=== PATIENT | female | born 1980 | race Caucasian/White ===

== ENCOUNTER 2024-09-17 17:58 | Emergency (ER) | payer OTHER, SELFPAY ==
[2024-09-17 17:59] VITALS: BP 138/76; PULSE 64; RESP 16; TEMP 36.6; O2SAT 100; BMI 28.5
--- NOTE | 2024-09-17 18:18 | EX.ED.DYSGE1 ---
HPI History of Present Illness Chief Complaint: Allergic Reaction Informant: patient and spouse/S.O. Narrative Narrative: 44-year-old female presenting to the emergency room with reaction to bug bite. Patient states that she was stung by an unknown insect on her forehead and her right wrist. She states that she has had good localized reactions in the past that been treated with steroids and Benadryl. She did not have any Benadryl with her so she took a Zyrtec. She notes facial swelling that has spread down to her nose. She denies any changes to her voice or difficulty breathing. No diffuse hives. [facility] Medical History Hypothyroid Allergy/AdvReac Type Severity Reaction Status Date / Time No Known Allergies Allergy Verified 09/17/24 18:00 Social History Smoking Status: Never smoker ROS ROS ED Constitutional Constitutional ED: Denies chills, fever(s) or weight loss Eyes Eyes: Denies change in vision or diplopia ENT ENT ED: Denies ear pain, rhinorrhea or sore throat Cardiovascular Cardiovascular: Denies chest pain, orthopnea, palpitations or racing heartbeat Respiratory/Chest Respiratory/Chest: Denies cough, dyspnea or orthopnea Gastrointestinal Gastrointestinal: Denies abdominal pain, diarrhea, nausea or vomiting Genitourinary Genitourinary ED: Denies dysuria, hematuria or urinary frequency Musculoskeletal Musculoskeletal: Denies arthralgias or myalgias Integumentary Reports other Details: Right wrist facial swelling ; Denies abscess or rash Neurologic Neurologic: Denies headache(s) or weakness Psychiatric Psychiatric: Denies anxiety, depression, suicidal ideation or suicidal thoughts Endocrine Endocrinology: Denies polydipsia, polyphagia or polyuria Allergic/Immunologic Allergic/Immunologic ED: Denies mouth swelling, tongue swelling or urticaria EXAM Physical Exam Const Vital Signs: 09/17/24 17:59 Temperature 97.8 F Temperature Source Oral Pulse Rate 64 Respiratory Rate 16 Blood Pressure 138/76 H Blood Pressure Mean 96 Pulse Ox 100 Oxygen Delivery Method Room Air Positive well nourished and well developed General Appearance ED: well developed HEENT Reports normocephalic and moist mucous membranes HEENT Narrative: Patient with mild swelling of the forehead extending down onto the medial right aspect of the nose. There is no stridor no tongue or lip swelling. Uvula appears normal. Eyes PERRL and EOMs intact bilaterally Neck no lymphadenopathy, supple and no JVD Resp normal respiratory effort and clear to auscultation bilaterally Cardio regular rate, regular rhythm and no murmurs GI normal to inspection, nondistended, normoactive bowel sounds and non-tender Palpation: soft Back/Spine no CVA tenderness and normal ROM Extremity Extremity Narrative: Mild swelling to the dorsum of the right wrist. General Extremety ED: Negative for edema General Extremity: Negative for edema Neuro oriented x3 and CN's II-XII intact bilaterally Sensorium / Orientation: alert Motor Exam: strength 5/5 throughout Psych mental status grossly normal Mood & Affect: Negative for depressed or tearful Skin no rashes or lesions noted and no wounds MDM MDM MDM Narrative Medical decision making narrative: Differential diagnosis includes anaphylaxis local reaction to insect sting cellulitis angioedema respiratory distress Patient be given a dose of Kenalog as she has done well with this in the past. Also give her a dose of Benadryl and Pepcid here. Home treatment discussed with patient notes understanding. Would recommend follow-up as needed return if worsening or concerns History & Record Review Discussion w/independent historian: Patient and Significant other Discharge Plan Triage Chief Complaint: Allergic Reaction ED Provider: Blake Basilio/Rx/DC Orders Print Language: Danish
[2024-09-17] MEDS: Famotidine 20 MG Tablet PO (18:25)
[2024-09-17] MEDS: Triamcinolone Acetonide 40 MG/ML Vial 80 MG IM (18:25)
[2024-09-17] MEDS: DiphenhydrAMINE 25 MG Capsule PO (18:25)
--- OUTSIDE RECORDS SUMMARY | 2024-09-17 18:32 | XMS RPT_ITS | CCD ---
Author Organization [facility] Care Team Providers Care Director Electronics Name Role Phone Dejah Marquez Primary Care Provider [phone] Georgina Wiggins Primary Care Provider Allergies Allergy Classification Reported Allergen(s) Allergy Type Date of Onset Reaction(s) Facility Adrenergic Agonists (4 sources) EPINEPHrine Drug Allergy 05-04-2018 [facility] (3 sources) EPINEPHrine Drug Allergy 05-04-2018 [facility] (7 sources) Bee Sting Allergy to substance 05-04-2018 [facility] Medications Completed/Discontinued Medications Medication Drug Class(es) Dates Sig (Normalized) Sig (Original) copper 313 mg drug implant (6 sources) Copper-containing Intrauterine Device copper (PARAGARD) 380 square mm intrauterine device 1 Intra Uterine Device by INTRAUTERINE route. 0 Active Comment on above: 1 Intra Uterine Shikha ce by INTRAUTERINE route. levonorgestrel 0.166139 mg/hr intrauterine system (2 sources) Progestin, Progestin-containi ng Intrauterine Device End: 08-07-2020 levonorgestrel (MIRENA) 20 mcg/24 hr (5 years) IUD 1 Each by INTRAUTERINE route one time only. 0 08/07/2020 Discontinued Comment on above: 1 Each by INTRAUTERI NE route one time only. levothyroxine sodium 0.075 mg oral tablet (11 sources) l-Thyroxine Start: 04-22-2021 levothyroxine (SYNTHROID) 75 mcg tablet Indications: Hypothyroidism, unspecified type take 2 tablets by mouth EVERY WEDNESDAY AND TAKE 1 TABLET BY MOUTH WEDNESDAY THROUGH WEDNESDAY 34 tablet 2 04/22/2021 Active Start: 08-21-2020 End: 04-22-2021 levothyroxine (SYNTHROID) 75 mcg tablet Indications: Hypothyroidism, unspecified type Take 2 tabs every Wednesday and 1 tab Wednesday thrwednesday 34 tablet 5 10/23/2020 04/22/2021 Discontinued Start: 06-13-2019 End: 08-20-2020 take 1 tablet by mouth once daily levothyroxine (SYNTHROID) 75 mcg tablet Indications: Hypothyroidism, unspecified type take 1 tablet by mouth once daily 30 tablet 0 06/21/2020 08/20/2020 Discontinued Comment on above: take 1 tablet by jovany th once daily Take 1 tablet by jovany th once daily. Take 2 tabs every and 1 tab Wednesday thrwednesday take 2 tablets by mo uth EVERY WEDNESDAY AND TAKE 1 TABLET BY MOUTH WEDNESDAY THROUGH WEDNESDAY MULTIVITAMIN ORAL (7 sources) MULTIVITAMIN ORA L Take by mouth once daily. 0 Active Comment on above: Take by mouth once d aily. predniSONE 20 mg oral tablet (2 sources) Start: 07-07-2019 End: 08-07-2020 predniSONE (DELTASONE) 20 mg tablet Indications: Contact dermatitis due to poison kat Take 3 tabs (60mg) daily x 7 days for first week. Week two take 2 tabs (40mg) daily x 7 days, Week three take one tab daily for 7 days 42 tablet 0 07/07/2019 08/07/2020 Discontinued Comment on above: Take 3 tabs (60mg) d aily x 7 days for first week. Week two take 2 tabs (40mg) daily x 7 days, Week three take one tab daily for 7 days Problems Problem Classification Problem Date Documented Da te Episodic/Chronic Other nervous system disorders (1 source) Paresthesia of hand ; Translations: [Anesthesia of skin] Episodic Other screening for suspected conditions (not mental disorders or infectious disease) (1 source) Patient encounter status; Translations: [Encounter for screening for other suspected endocrine disorder] Episodic Thyroid disorders (12 sources) Hypothyroidism; Translations: [Hypothyroidism, unspecified] 05-04-2018 Chronic Viral infection (1 source) Viral wart on finger; Translations: [Viral wart, unspecified] Episodic Results Test Name Value Interpretation Reference Range Facil ity CNPNon 08-14-2021 CNPManan Telephone ([facility]) ANGIE GARCIA ([id number]) 1980 F Date Time Provider Department 08/14/21 DEJAH MARQUEZ During your visit today, we recorded the following information about you: Jackie Rossi 08/14/2021 8:27 AM Signed Received medical record request from [facility]. Change of PCP Record faxed to above. Mgraening Allergies As of Date: 08/14/2021 Noted Allergy Reaction BEE STING 05/04/2018 7 - Swelling EPIPEN (EPINEPHRINE HCL) 05/04/2018 7 - Swelling Date Reviewed: 08/07/2020 Reviewed by: Dejah Marquez MD - Fully Assessed Reason for Visit: Release Of Medical Records [2017] Prescriptions as of 08/14/2021 - levothyroxine (SYNTHROID) 75 mcg tablet take 2 tablets by mouth EVERY WEDNESDAY AND TAKE 1 TABLET BY MOUTH WEDNESDAY THROUGH WEDNESDAY - copper (PARAGARD) 380 square mm intrauterine device 1 Intra Uterine Device by INTRAUTERINE route. - MULTIVITAMIN ORAL Take by mouth once daily. Problem List As Of Date 08/14/2021 Noted Resolved Urinary tract infection with hematuria [N39.0, *09/12/2016 05/04/2018 Dysuria [R30.0] 09/12/2016 05/04/2018 Hypothyroidism [E03.9] Encounter Status:Closed by JACKIE ROSSI on 08/14/21 [facility] OBSOLETEon 10-23-2020 OBSOLETE Refill ([facility]) ANGIE GARCIA ([id number]) 1980 F Date Time Provider Department 10/23/20 DEJAH MARQUEZ During your visit today, we recorded the following information about you: Marina Quick 10/23/2020 9:41 AM Signed Patient called office, requesting a refill on levothyroxine (SYNTHROID) 75 mcg tablet Thank you Marina Christensen LPN 10/23/2020 10:16 AM Signed Pharmacy faxed requesting the following refill Pending Prescriptions Disp Refills LEVOTHYROXINE 75 MCG TABLET 34 tablet 5 Sig: Take 2 tabs every Wednesday and 1 tab Wednesday thru Wednesday [place]: No Allergies: Bee Sting and Epipen [Epinephrine Hcl] (home) [phone] (cell) Last Visit date: 08/07/20 Future appointment: none The patients preferred pharmacy has been captured for this encounter? yes Request is for script(s) to be escript to pharmacy. OARRS Report for this patient was checked and validated:Not applicable Ysabel Christensen LPN Allergies As of Date: 10/23/2020 Noted Allergy Reaction BEE STING 05/04/2018 7 - Swelling EPIPEN (EPINEPHRINE HCL) 05/04/2018 7 - Swelling Date Reviewed: 08/07/2020 Reviewed by: Dejah Marquez MD - Fully Assessed Reason for Visit: Refill Request [94] Visit Diagnosis:Hypothyroi dism, unspecified type [E03.9] Order(s):levothyroxi ne (SYNTHROID) 75 mcg tabletTake 2 tabs every Wednesday and 1 tab Wednesday thru WednesdayDisp: 34 tabletRfl: 5 Prescriptions as of 10/23/2020 - levothyroxine (SYNTHROID) 75 mcg tablet Take 2 tabs every Wednesday and 1 tab Wednesday thru Wednesday - copper (PARAGARD) 380 square mm intrauterine device 1 Intra Uterine Device by INTRAUTERINE route. - MULTIVITAMIN ORAL Take by mouth once daily. Problem List As Of Date 10/23/2020 Noted Resolved Urinary tract infection with hematuria [N39.0, *09/12/2016 05/04/2018 Dysuria [R30.0] 09/12/2016 05/04/2018 Hypothyroidism [E03.9] Prescriptions ordered this encounter Disp Refills Start End LEVOTHYROXINE 75 MCG TABLET 34 t* 5 10/23/2020 Sig: Take 2 tabs every Wednesday and 1 tab Wednesday thru Wednesday Medications Discontinued During This Encounter Prescriptions - levothyroxine (SYNTHROID) 75 mcg tablet (Discontinued) Take 2 tabs every Wednesday and 1 tab Wednesday thru Wednesday Encounter Status:Closed by DEJAH MARQUEZ on 10/23/20 [facility] OBSOLETEon 08-27-2020 OBSOLETE Refill ([facility]) ANGIE GARCIA ([id number]) 1980 F Date Time Provider Department 08/27/20 DEJAH MARQUEZ [facility] During your visit today, we recorded the following information about you: Allergies As of Date: 08/27/2020 Noted Allergy Reaction BEE STING 05/04/2018 7 - Swelling EPIPEN (EPINEPHRINE HCL) 05/04/2018 7 - Swelling Date Reviewed: 08/07/2020 Reviewed by: Dejah Marquez MD - Fully Assessed Reason for Visit: Refill Request [94] Visit Diagnosis:Hypothyroi dism, unspecified type [E03.9] Prescriptions as of 08/27/2020 Sig: LEVOTHYROXINE 75 MCG TABLET Take 2 tabs every Wednesday and * COPPER 380 SQUARE MM INTRAUTE* 1 Intra Uterine Device by INT* MULTIVITAMIN ORAL Take by mouth once daily. Problem List As Of Date 08/27/2020 Noted Resolved Urinary tract infection with hematuria [N39.0, *09/12/2016 05/04/2018 Dysuria [R30.0] 09/12/2016 05/04/2018 Hypothyroidism [E03.9] Encounter Status:Closed by SHERRY WOODRUFF MA on 08/27/20 [facility] TSH, 3rd generationon 2018 TSH, 3rd generation 5.490 uIU/mL High 0.358-3.740 [facility] Comment on above: Performed By: #### T SH3 #### [facility] [address] [place], [place] [address] Vital Signs Date Time Vital Sign Value Performing Clinician Arnold watts 08-07-2020 08:30-0400 Body height 165.1 cm Dejah Marquez MD Work Phone: [facility] 08-07-2020 08:30-0400 Body weight 71.22 kg Dejah Marquez MD Work Phone: [facility] 08-07-2020 08:30-0400 Diastolic blood pressure 68 mm[Hg] Dejah Marquez MD Work Phone: [facility] 08-07-2020 08:30-0400 Heart rate 81 /min Dejah Marquez MD Work Phone: [facility] 08-07-2020 08:30-0400 SaO2% (BldA) [Mass fraction] 99 % Dejah Marquez MD Work Phone: [facility] 08-07-2020 08:30-0400 Systolic blood pressure 100 mm[Hg] Dejah Marquez MD Work Phone: [facility] Encounters Encounter Date Encounter Type Care Provider Facility Start: 08-14-2021 Telephone encounter Dejah perrin MD Work Phone: [facility] Comment on above: Release Of Medical R ecords Start: 04-22-2021 Refill Dejah Marquez MD Work Phone: [facility] Comment on above: Refill Request Start: 10-23-2020 End: 10-23-2020 Refill Dejah Marquez MD Work Phone: [facility] Comment on above: Refill Request Start: 08-27-2020 End: 08-27-2020 Refill Dejah Marquez MD Work Phone: [facility] Comment on above: Refill Request Start: 08-16-2020 End: 08-16-2020 Telephone encounter Dejah Marquez MD Work Phone: [facility] Comment on above: Results Start: 08-07-2020 End: 08-07-2020 Patient encounter procedure Dejah Marquez MD Work Phone: [facility] Comment on above: Annual physical exam (Primary Dx); Routine lab draw; Screening for endocrine, nutritional, metabolic and immunity disorder; Numbness and tingling in both hands; Viral wart on finger Start: 08-07-2020 End: 08-07-2020 Patient encounter status Dejah Marquez MD Work Phone: [facility] Start: 06-20-2020 End: 06-20-2020 Refill Inocencio ([employer] Ramses Work Phone: [facility] Comment on above: Refill Request (levo throxine) Procedures Date Procedure Procedure Detail Performing Clinician Start: 08-07-2020 Adult depression screening assessment Dejah Marquez MD Work Phone: Start: 06-13-2019 Adult depression screening assessment Inocencio Ramses Plan of Treatment Date Care Activity Detail Author Start: 09-14-2028 Urine microalbumin profile DTA P,TDAP,TD (3 - Td or Tdap) [facility] Start: 05-16-2023 Urine microalbumin profile DTAP,TDAP ,TD (2 - Td) [facility] Start: 12-04-2021 Influenza vaccination INFLUENZA (Sea son Ended) [facility] Start: 08-07-2021 Adult depression scr eening assessment DEPRESSION SCREENING [facility] Start: 08-07-2021 ANNUAL PCP TEAM PRIMER BOXER MATEO DISEASE VISIT ANNUAL PCP TEAM CHRONIC DISEASE VISIT [facility] Start: 05-25-2021 COVID-19 VACCINE (3 - Booster for Moderna series) COVID-19 VACCINE (3 - Booster for Moderna series) [facility] Start: 12-04-2020 Influenza vaccination [facility] Start: 08-07-2020 End: 08-07-2021 CBC W Auto Differential panel - Blood CBC + DIFF Lab Routine Routine lab draw Expected: 08/07/2020, Expires: 08/07/2021 [facility] Comment on above: Expected: 08/07/2020 , Expires: 08/07/2021 Start: 08-07-2020 End: 08-07-2021 Comprehensive metabolic 2000 panel - Serum or Plasma COMP METABOLIC PANEL Lab Routine Routine lab draw Expected: 08/07/2020, Expires: 08/07/2021 [facility] Comment on above: Expected: 08/07/2020 , Expires: 08/07/2021 Start: 08-07-2020 End: 08-07-2021 LIPID PANEL BASIC LIPID PANEL BASIC Lab Routine Screening for endocrine, nutritional, metabolic and immunity disorder Expected: 08/07/2020, Expires: 08/07/2021 [facility] Comment on above: Expected: 08/07/2020 , Expires: 08/07/2021 Start: 08-07-2020 End: 08-07-2021 Thyrotropin [Units/volume] in Serum or Plasma TSH BLD Lab Routine Screening for endocrine, nutritional, metabolic and immunity disorder Expected: 08/07/2020, Expires: 08/07/2021 [facility] Comment on above: Expected: 08/07/2020 , Expires: 08/07/2021 Start: 07-06-2020 ANNUAL PCP TEAM PRIMER BOXER MATEO DISEASE VISIT ANNUAL PCP TEAM CHRONIC DISEASE VISIT [facility] Start: 06-12-2020 Adult depression scr [facility] assessment DEPRESSION SCREENING [facility] Start: 03-11-2020 HPV TESTING HPV TESTING [facility] Start: 03-11-2020 PAP TESTING PAP TESTING [facility] Start: 12-05-2019 Influenza vaccination INFLUENZA (#1) [facility] Start: 2000 HEPATITIS C SCREENING HEPATITIS C [facility] Start: 2000 HIV SCREENING HIV SCREENING [facility] Start: 1994 COVID-19 VACCINE (1) COVID-19 VACCIN E (1) [facility] End: 08-07-2021 EMG(NEURO/NI) EMG(NEURO/NI) EMG Routine Numbness and tingling in both hands 1 Occurrences starting 08/07/2020 until 08/07/2021 [facility] Comment on above: 1 Occurrences starti ng 08/07/2020 until 08/07/2021 End: 08-07-2021 T4 FREE/FREE THYROX T4 FREE/FREE THYROX Lab Routine Screening for endocrine, nutritional, metabolic and immunity disorder 1 Occurrences starting 08/07/2020 until 08/07/2021 [facility] Comment on above: 1 Occurrences starti ng 08/07/2020 until 08/07/2021 Immunizations Immunization Date Immunization Notes Care Provider Yaw amin 12-23-2020 COVID-19 vaccine, fu ll dose (MODERNA) Dejah Marquez MD Work Phone: [facility] 11-25-2020 COVID-19 vaccine, fu ll dose (MODERNA) Dejah Marquez MD Work Phone: [facility] 09-14-2018 tetanus toxoid, redu jose g diphtheria toxoid, and acellular pertussis vaccine, adsorbed Dejah Marquez MD Work Phone: [facility] Social History Date Type Detail Facility Start: 09-12-2016 End: 06-13-2019 Tobacco smoking status NHIS Never smoker [facility] Start: 09-12-2016 End: 06-13-2019 Tobacco use and exposure Never used [facility] Start: 06-13-2019 End: 08-07-2020 Alcohol intake Current drinker of alcohol (finding) [facility] Start: 09-12-2016 Alcohol Comment occasionally [facility] Start: 1980 Sex Assigned At Not on file [facility] Exposure to SARS-CoV -2 (event) Not sure [facility] Clinical Notes 09-12-2016 to 08-14-2021 Telephone Encounter - Jackie Rossi - 08/14/2021 8:26 AM EDTTelephone Encounter - Ysabel Christensen LPN - 04/22/2021 9:30 AM ESTTelephone Encounter - Ysabel Christensen LPN - 10/23/2020 10:15 AM EDT Note Date & Type Note Facility 08-14-2021 Miscellaneous Notes Received medical record request from [facility]. Change of PCP Record faxed to above. Luke documented in this encounter [facility] 04-22-2021 Miscellaneous Notes Pharmacy faxed requesting the following refill Pending Prescriptions Disp Refills LEVOTHYROXINE 75 MCG TABLET 34 tablet 2 Sig: take 2 tablets by mouth EVERY WEDNESDAY AND TAKE 1 TABLET BY MOUTH WEDNESDAY THROUGH WEDNESDAY [place]: No Allergies: Bee Sting and Epipen [Epinephrine Hcl] (home) [phone] (cell) Last Visit date: 06/13/2019 Future appointment: 08/07/20 The patients preferred pharmacy has been captured for this encounter? yes Request is for script(s) to be escript to pharmacy. OARRS Report for this patient was checked and validated:Not applicable Ysabel Christensen LPN documented in this encounter [facility] 10-23-2020 Miscellaneous Notes Pharmacy faxed requesting the following refill Pending Prescriptions Disp Refills LEVOTHYROXINE 75 MCG TABLET 34 tablet 5 Sig: Take 2 tabs every Wednesday and 1 tab Wednesday thru Wednesday [place]: No Allergies: Bee Sting and Epipen [Epinephrine Hcl] (home) [phone] (cell) Last Visit date: 08/07/20 Future appointment: none The patients preferred pharmacy has been captured for this encounter? yes Request is for script(s) to be escript to pharmacy. OARRS Report for this patient was checked and validated:Not applicable Ysabel Christensen LPN Patient called office, requesting a refill on levothyroxine (SYNTHROID) 75 mcg tablet Thank you Marina Quick documented in this encounter [facility] 08-26-2020 Miscellaneous Notes Pt informed of the message below. Understanding voiced; she states she called this morning and they said they didn't have anything for her but she called it by the wrong name. She's going to call them again and double check and if they still don't have it she will let us know. Rhonda Jim CMA Patient called office, left message, stating per her pharmacy they have never received her new Rx for her Synthroid. Please advise Thank you Marina Quick Noted. RX pended for review. Thanks! Rhonda Jim CMA Patient notified, voiced understanding. Patient will need new rx sent over with new instructions. Berta Morocho Called pt; no answer, left VM to return our call. Rhonda Jim CMA All the blood work looks okay, except Thyroid- start taking 2 tab of the levothyroxine on sundays and 1 tab daily for the rest of the week. documented in this encounter [facility] 08-07-2020 Instructions Dejah Marquez MD - 08/07/2020 9:08 AM EDT Fasting blood work and nerve conduction study- see orders. documented in this encounter [facility] 08-07-2020 History of Presen t illness Narrative Subjective Angie Worthy is a 40 year old female who presents for a Physical. States her arm and legs fall asleep a lot lately. The history is provided by the patient. She also has tingling and numbness in the hands. Hypothyroidism- last TSH in 2019 Review of Systems Constitutional: Negative for fever, malaise/fatigue and weight loss. HENT: Negative for hearing loss and tinnitus. Eyes: Negative for blurred vision and double vision. Respiratory: Negative for cough and shortness of breath. Cardiovascular: Negative for chest pain and palpitations. Gastrointestinal: Negative for abdominal pain, constipation, diarrhea, nausea and vomiting. Genitourinary: Negative for dysuria, frequency, hematuria and urgency. Musculoskeletal: Negative for falls and myalgias. Neurological: Positive for tingling. Negative for dizziness, sensory change and weakness. Endo/Heme/Allergies: Negative for polydipsia. Psychiatric/Behavioral: Negative for depression. The patient is not nervous/anxious. PAST MEDICAL HISTORY Diagnosis Date Hypothyroidism PAST SURGICAL HISTORY Procedure Laterality Date PAST SURGICAL HISTORY OF 2012 section FAMILY HISTORY Problem Relation Age of Onset Heart disease Maternal Grandmother Hypertension Maternal Grandmother Heart disease Maternal Grandfather Hypertension Maternal Grandfather Social History Tobacco Use Smoking status: Never Smoker Smokeless tobacco: Never Used Vaping Use Vaping Use: Never used Substance Use Topics Alcohol use: Yes Comment: occasionally Drug use: No Current Meds copper (PARAGARD) 380 square mm intrauterine device 1 Intra Uterine Device by INTRAUTERINE route. levothyroxine (SYNTHROID) 75 mcg tablet take 1 tablet by mouth once daily MULTIVITAMIN ORAL Take by mouth once daily. predniSONE (DELTASONE) 20 mg tablet Take 3 tabs (60mg) daily x 7 days for first week. Week two take 2 tabs (40mg) daily x 7 days, Week three take one tab daily for 7 days levonorgestrel (MIRENA) 20 mcg/24 hr (5 years) IUD 1 Each by INTRAUTERINE route one time only. Objective Ht 165.1 cm (5' 5) Wt 71.2 kg (157 lb) LMP 07/15/2020 BMI 26.13 kg/m Physical Exam Vitals and nursing note reviewed. Constitutional: Appearance: Normal appearance. HENT: Head: Normocephalic and atraumatic. Right Ear: Tympanic membrane, ear canal and external ear normal. There is no impacted cerumen. Left Ear: Tympanic membrane, ear canal and external ear normal. There is no impacted cerumen. Eyes: General: No scleral icterus. Right eye: No discharge. Left eye: No discharge. Extraocular Movements: Extraocular movements intact. Conjunctiva/sclera: Conjunctivae normal. Pupils: Pupils are equal, round, and reactive to light. Cardiovascular: Rate and Rhythm: Normal rate and regular rhythm. Heart sounds: Normal heart sounds. No friction rub. Pulmonary: Effort: Pulmonary effort is normal. No respiratory distress. Breath sounds: Normal breath sounds. No stridor. No wheezing or rhonchi. Abdominal: General: Abdomen is flat. Bowel sounds are normal. There is no distension. Palpations: Abdomen is soft. There is no mass. Tenderness: There is no abdominal tenderness. Hernia: No hernia is present. Musculoskeletal: General: Normal range of motion. Neurological: General: No focal deficit present. Mental Status: She is alert. Cranial Nerves: No cranial nerve deficit. Motor: No weakness. Psychiatric: Mood and Affect: Mood normal. ASSESSMENT/PLAN: 1. Annual physical exam - ICD9: V70.0, ICD10: Z00.00 (primary diagnosis) - Encouraged monthly Breast Self Exam - Recommended calcium intake with supplements or by diet (goal of 7943-1579 mg/day - Recommended regular aerobic exercise. - Check CBC with diff, CMP, TSH and fasting lipid panel 2. Routine lab draw - ICD9: V72.60, ICD10: Z01.89 - CBC + DIFF - COMP METABOLIC PANEL 3. Screening for endocrine, nutritional, metabolic and immunity disorder - ICD9: V77.99, ICD10: Z13.29, Z13.21, Z13.228, Z13.0 - TSH BLD - LIPID PANEL BASIC - T4 FREE/FREE THYROX 4. Numbness and tingling in both hands - ICD9: 782.0, ICD10: R20.0, R20.2 - EMG(NEURO/NI) 5. Viral wart on finger - ICD9: 078.10, ICD10: B07.9 Is using topical meds and following dermatology Dejah Marquez MD documented in this encounter [facility] 09-12-2016 History of Past i llness Narrative Problem Noted Date Resolved Date Urinary tract infection with hematuria 7 05/04/2018 Dysuria 09/12/2016 05/04/2018 documented as of this encounter (statuses as of 08/08/2020) [place] [id number] History of Past illness Narrative* Problem Noted Date Resolved Date Urinary tract infection with hematuria 7 05/04/2018 Dysuria 09/12/2016 05/04/2018 documented as of this encounter (statuses as of 08/26/2020) [facility] History of Past illness Narrative* Problem Noted Date Resolved Date Urinary tract infection with hematuria 7 05/04/2018 Dysuria 09/12/2016 05/04/2018 documented as of this encounter (statuses as of 08/27/2020) [facility] History of Past illness Narrative* Problem Noted Date Resolved Date Urinary tract infection with hematuria 7 05/04/2018 Dysuria 09/12/2016 05/04/2018 documented as of this encounter (statuses as of 10/23/2020) [facility] History of Past illness Narrative* Problem Noted Date Resolved Date Urinary tract infection with hematuria 7 05/04/2018 Dysuria 09/12/2016 05/04/2018 documented as of this encounter (statuses as of 04/22/2021) [facility] History of Past illness Narrative* Problem Noted Date Resolved Date Urinary tract infection with hematuria 7 05/04/2018 Dysuria 09/12/2016 05/04/2018 documented as of this encounter (statuses as of 08/14/2021) [facility] note* Diagnosis Annual physical exam- Primary Routine general medical examination at a health care facility Routine lab draw Laboratory examination ordered as part of a routine general medical examination Screening for endocrine, nutritional, metabolic and immunity disorder Screening for other and unspecified endocrine, nutritional, metabolic, and immunity disorders Numbness and tingling in both hands Viral wart on finger [facility] Diagnosis Hypothyroidism, unspecified type [facility] Diagnosis Hypothyroidism, unspecified type documented in this encounter [facility] Diagnosis Hypothyroidism, unspecified type documented in this encounter [facility] Outpatient Procedure (Routine) Status Reason Specialty Diagnoses / Procedures Referred By Contact Referred To Contact Pending Review Auto-Generated Referral [facility] Diagnoses Numbness and tingling in both hands Procedures EMG(NEURO/NI) MOTOR &/SENS 9-10 NRV CNDJ PRECONF ELTRODE LIMB Dejah Marquez MD [address] [facility] [address] [place] [address] Neurological [place] [address] [place] [address] [facility] Summary Purpose Family History No Family History Records FoundNo Family History Records Found Advance Directives No Advanced Directives Records FoundNo Advanced Directives Records Found History of Past Illness Problem Noted Date Resolved Date Urinary tract infection with hematuria 7 05/04/2018 Dysuria 09/12/2016 05/04/2018 Assessments Diagnosis Hypothyroidism, unspecified type Additional Source Comments INFORMATION SOURCE (unrecogn ized section and content) DATE CREATED AUTHOR 07/07/2019 [facility] DATE CREATED AUTHOR AUTHOR'S ORGANIZ ATION 08/15/2021 [facility] Source Comments (unrecognize d section and content) In the event this informatio n is protected by the Federal Confidentiality of Alcohol and Drug Abuse Patient Records regulations: The Federal rules restrict any use of the information to criminally investigate or prosecute any alcohol or drug abuse patient.[facility] Hospital[facility] the event this information is protected by the Federal Confidentiality of Alcohol and Drug Abuse Patient Records regulations: The Federal rules restrict any use of the information to criminally investigate or prosecute any alcohol or drug abuse patient.[facility] Hospital[facility] the event this information is protected by the Federal Confidentiality of Alcohol and Drug Abuse Patient Records regulations: The Federal rules restrict any use of the information to criminally investigate or prosecute any alcohol or drug abuse patient.[facility] Hospital[facility] the event this information is protected by the Federal Confidentiality of Alcohol and Drug Abuse Patient Records regulations: The Federal rules restrict any use of the information to criminally investigate or prosecute any alcohol or drug abuse patient.[facility] Hospital[facility] the event this information is protected by the Federal Confidentiality of Alcohol and Drug Abuse Patient Records regulations: The Federal rules restrict any use of the information to criminally investigate or prosecute any alcohol or drug abuse patient.[facility] Hospital[facility] the event this information is protected by the Federal Confidentiality of Alcohol and Drug Abuse Patient Records regulations: The Federal rules restrict any use of the information to criminally investigate or prosecute any alcohol or drug abuse patient.[facility] Hospital[facility] the event this information is protected by the Federal Confidentiality of Alcohol and Drug Abuse Patient Records regulations: The Federal rules restrict any use of the information to criminally investigate or prosecute any alcohol or drug abuse patient.[facility] Reason for Visit (unrecogniz ed section and content) Reason Comments Refill Request levothroxine Reason Comments Physical Status Reason Specialty Diagnoses / Procedures Referred By Contact Referred To Contact Authorized Patient Cleared - Qualified 100% FAS Diagnoses PHYSICAL Procedures PHYSICAL Dejah Marquez MD [address] [facility] [address] [place] [address] [facility] Dept Reason Comments Results Reason Comments Refill Request Reason Comments Release Of Medical Records Telephone Encounter - Sherry Woodruff Ma - 06/21/2020 4:14 PM EDTTelephone Encounter - Sherry Woodruff Ma - 06/20/2020 10:19 AM EDT Miscellaneous Notes (unrecog nized section and content) Called pt she states she will call back to schedule appointment once she looks at her work schedule Pharmacy faxed requesting the following refill Pending Prescriptions Disp Refills LEVOTHYROXINE 75 MCG TABLET 30 tablet 11 Sig: take 1 tablet by mouth once daily [place]: Yes Allergies: Bee Sting and Epipen [Epinephrine Hcl] (home) [phone] (cell) Last Visit date: 06/13/2019 Future appointment: na The patients preferred pharmacy has been captured for this encounter? yes Request is for script(s) to be escript to pharmacy. OARRS Report for this patient was checked and validated:Not applicable Sherry Woodruff Ma documented in this encounter Care Teams (unrecognized sec tion and content) Director Electronics Relationship Specialty Start Date End Date Dejah Marquez MD [address] [facility] [address] [place] [address] PCP - General Internal Medicine 05/04/18 Director Electronics Relationship Specialty Start Date End Date Georgina Wiggins [address] [facility] [address] [place] [address] PCP - General Internal Medicine 08/14/21 FOR RECORDS PERTAINING TO PATIENTS WHO ARE OR HAVE BEEN ENROLLED IN A CHEMICAL DEPENDENCY/SUBSTANCEABUSE PROGRAM, SOME INFORMATION MAY BE OMITTED. This clinical summary was aggregated from multiple sources. Caution should be exercised in using it in the provision of clinical care. This summary normalizes information from multiple sources, and as a consequence, information in this document may materially change the coding, format and clinical context of patient data. In addition, data may be omitted in some cases. CLINICAL DECISIONS SHOULD BE BASED ON THE PRIMARY CLINICAL RECORDS. [facility] provides no warranty or guarantee of the accuracy or completeness of information in this document.
[2024-09-17 18:39] VITALS: BP 128/74; PULSE 78; RESP 16; TEMP 36.6; O2SAT 100
== END 2024-09-17 18:40 | disposition home or self-care (01) ==
LOC: ED 18:29
PROVIDERS: Emergency Provider Emergency Medicine; Visit Provider Emergency Medicine
DX: T78.49XA Other allergy, initial encounter (principal)
CPT/HCPCS: 99283